=== PATIENT | male | born 1975 | race Hispanic/Latino ===

== ENCOUNTER 2022-06-19 18:50 | Emergency (ER) | payer SELFPAY ==
[2022-06-19] MEDS ORDERED: predniSONE 20 MG TAB ONE (20:52)
== END 2022-06-19 20:55 | disposition home or self-care (01) ==
LOC: CSHERS 18:50
DX: J45.901 Unspecified asthma with (acute) exacerbation (principal); F17.210 Nicotine dependence, cigarettes, uncomplicated
CPT/HCPCS: 71045; 93005; J7512

== ENCOUNTER 2022-07-30 07:47 | Emergency (ER) | payer SELFPAY ==
[2022-07-30] MEDS ORDERED: Dexamethasone 10 MG/ML VIAL ONE (08:08)
== END 2022-07-30 10:20 | disposition home or self-care (01) ==
LOC: CSHERS 07:47
DX: J45.901 Unspecified asthma with (acute) exacerbation (principal); Z87.891 Personal history of nicotine dependence
CPT/HCPCS: 94640; 94760; 96372; J1100; J7620

== ENCOUNTER 2022-09-13 13:21 | Observation (INO) | payer SELFPAY ==
[2022-09-13] MEDS ORDERED: Morphine 4 MG/ML VIAL ONE ×2 (15:21→18:37)
[2022-09-13] MEDS ORDERED: Diazepam 10 MG/2 ML SYRINGE ONE (15:22)
[2022-09-13] MEDS ORDERED: Ketorolac Tromethamine 30 MG/ML VIAL ONE ×2 (16:28→22:58)
[2022-09-13] MEDS ORDERED: predniSONE 20 MG TAB ONE ×2 (16:28)
[2022-09-13] MEDS ORDERED: Ondansetron ODT 4 MG TAB PO PRN (19:39)
[2022-09-13] MEDS ORDERED: Ondansetron PF 4 MG/2 ML Vial IVP PRN (19:39)
[2022-09-13] MEDS ORDERED: Milk Of Magnesia 30 ML UDCUP PO PRN (19:39)
[2022-09-13] MEDS ORDERED: HYDROcodone/Acetaminophen 7.5/325 mg Tablet ONE (20:10)
[2022-09-13] MEDS ORDERED: Acetaminophen 325 MG TAB ONE (20:11)
[2022-09-13] MEDS ORDERED: Diazepam 5 MG TAB ONE (20:11)
[2022-09-13 20:19] LABS: #Eosinphils 0.1 10x3/uL (0.0-0.5); #Monocytes 0.4 10x3/uL (0.0-1.1); #Neutrophils 11.1 10x3/uL (1.5-8.4); %Basophils 0.3 % (0.0-2.0); %Eosinophils 1.1 % (0.0-6.0); %Lymphocytes 10.6 % (18.0-47.0); %Monocytes 3.1 % (0.0-10.0); %Neutrophils 84.4 % (40.0-75.0); Hemoglobin 15.9 g/dL (13.5-17.5); Mean Corpuscular HGB CONC 35.7 g/dL (32.0-36.0); Mean Corpuscular Hemoglobin 30.6 pg (27.0-33.0); Mean Corpuscular Volume 85.9 fl (81.2-95.1); Mean Platelet Volume 10.8 fl (7.4-10.4); Platelet Count 272 10x3/uL (150-450); RBC Distribution Width 13.1 % (11.5-14.5); Red Blood Cell (RBC) Count 5.19 10x6/uL (4.32-5.72); White Blood Cell (WBC) Count 13.2 10x3/uL (3.5-10.5)
[2022-09-13 20:26] LABS: Anion Gap 13 mmol/L (10-20); BUN (Urea Nitrogen) 16 mg/dL (8.9-20.6); Calc. Creatinine Clearance 0 mL/min (70-130); Calcium 9.2 mg/dL (7.8-10.44); Carbon Dioxide 25 mmol/L (22-29); Chloride 102 mmol/L (98-107); Estimated GFR 114; Glucose 88 mg/dL (70-105); Magnesium 2.1 mg/dL (1.6-2.6); Potassium 4.2 mmol/L (3.5-5.1); Sodium 136 mmol/L (136-145)
[2022-09-13] MEDS ORDERED: Ventolin HFA Inhaler 60 PUFF INHALER INH PRN (21:57)
[2022-09-13] MEDS ORDERED: Docusate 100 MG CAP PO SCH (22:00)
[2022-09-13] MEDS: Acetaminophen 325 MG TAB PO SCH (22:00)
[2022-09-13] MEDS: Diazepam 5 MG TAB PO SCH (22:01)
[2022-09-13] MEDS: Ketorolac Tromethamine 30 MG/ML VIAL IVP SCH (23:02)
[2022-09-13] MEDS ORDERED: Ventolin HFA Inhaler 60 PUFF INHALER ONE (23:18)
[2022-09-13] MEDS ORDERED: Melatonin 3 MG TAB PO SCH (23:45)
[2022-09-14] MEDS ORDERED: HYDROcodone/Acetaminophen 7.5/325 mg Tablet ONE ×2 (04:30→08:11)
[2022-09-14] MEDS ORDERED: Diazepam 5 MG TAB ONE (04:31)
[2022-09-14] MEDS ORDERED: Acetaminophen 325 MG TAB ONE ×2 (04:31→08:12)
[2022-09-14] MEDS: Acetaminophen 325 MG TAB PO SCH ×3 (04:34→14:06)
[2022-09-14] MEDS: HYDROcodone/Acetaminophen 7.5/325 mg Tablet PO PRN ×4 (04:35→17:05)
[2022-09-14] MEDS: Diazepam 5 MG TAB PO SCH ×2 (04:35→14:10)
[2022-09-14] MEDS ORDERED: Ketorolac Tromethamine 30 MG/ML VIAL ONE (04:37)
[2022-09-14] MEDS: Ketorolac Tromethamine 30 MG/ML VIAL IVP SCH ×3 (04:45→17:05)
[2022-09-14] MEDS ORDERED: Enoxaparin Sodium 40 MG/0.4 ML SYRINGE ONE (08:12)
[2022-09-14] MEDS ORDERED: Enoxaparin Sodium 40 MG/0.4 ML SYRINGE SC SCH (09:00)
[2022-09-14] MEDS ORDERED: Docusate 100 MG CAP PO SCH (09:00)
[2022-09-14 09:57] VITALS: BMI 30.8
[2022-09-14] MEDS: FLU VACC QS2022-23(6MOS UP)/PF 60 MCG/0.5 ML SYRINGE IM ONE ×2 (11:39→11:40)
[2022-09-14] MEDS: Cyclobenzaprine 10 MG TAB PO PRN ×2 (11:43→17:06)
[2022-09-14 15:13] VITALS: BP 120/78; TEMP 97.7
== END 2022-09-14 19:40 | disposition home or self-care (01) ==
LOC: CSHERS 13:21 → INTOOBSV 21:53 → CSHERHOLD 21:53 → CSHTELE 09-14 09:27
PROVIDERS: ADMIT Family Medicine; ATTEND Physician Assistant
DX: M54.50 Low back pain, unspecified (principal); J45.909 Unspecified asthma, uncomplicated; F17.200 Nicotine dependence, unspecified, uncomplicated; Z20.822 Contact with and (suspected) exposure to COVID-19; Z79.899 Other long term (current) drug therapy
CPT/HCPCS: 36415; 72100; 74177; 80048; 83735; 85025; 96372; 96374; 96376; G0378; J1650; J1885; J2270; J3360; J7512; U0003; U0005

== ENCOUNTER 2022-09-17 20:53 | Inpatient (IN) | payer SELFPAY ==
[2022-09-17] MEDS ORDERED: Magnesium 2 GM/50 ML BAG (IN WATER) ONE (21:15)
[2022-09-17] MEDS ORDERED: methylPREDNISolone Sod Succ/PF 125 MG/2 ML VIAL ONE (21:16)
[2022-09-17] MEDS ORDERED: Albuterol Sulfate 2.5 mg/3 ml Neb ONE (21:20)
[2022-09-17 21:31] LABS: #Basophils 0.1 10x3/uL (0.0-0.2); #Eosinphils 0.2 10x3/uL (0.0-0.5); #Monocytes 0.8 10x3/uL (0.0-1.1); #Neutrophils 12.5 10x3/uL (1.5-8.4); %Basophils 0.5 % (0.0-2.0); %Eosinophils 1.5 % (0.0-6.0); %Lymphocytes 4.8 % (18.0-47.0); %Monocytes 5.4 % (0.0-10.0); %Neutrophils 87.1 % (40.0-75.0); Hemoglobin 15.8 g/dL (13.5-17.5); Mean Corpuscular HGB CONC 34.9 g/dL (32.0-36.0); Mean Corpuscular Hemoglobin 30.4 pg (27.0-33.0); Mean Corpuscular Volume 87.1 fl (81.2-95.1); Platelet Count 241 10x3/uL (150-450); RBC Distribution Width 13.5 % (11.5-14.5); White Blood Cell (WBC) Count 14.4 10x3/uL (3.5-10.5)
[2022-09-17] MEDS ORDERED: Ondansetron PF 4 MG/2 ML Vial IVP PRN (23:05)
[2022-09-17] MEDS ORDERED: Guaifenesin DM 100-10/5 ML UDCUP PO PRN (23:05)
[2022-09-17] MEDS ORDERED: hydrALAZINE 20 MG/ML VIAL SLOW IVP PRN (23:09)
[2022-09-17] MEDS ORDERED: Magnesium 2 GM/50 ML(in water) 2 GM in Premix Bag 1 BAG IVPB SCH (23:15)
[2022-09-17 23:19] LABS: Anion Gap 14 mmol/L (10-20); BUN (Urea Nitrogen) 15 mg/dL (8.9-20.6); Calc. Creatinine Clearance 0 mL/min (70-130); Calcium 9.1 mg/dL (7.8-10.44); Carbon Dioxide 22 mmol/L (22-29); Chloride 105 mmol/L (98-107); Estimated GFR 111; Glucose 99 mg/dL (70-105); Potassium 4.3 mmol/L (3.5-5.1); Sodium 137 mmol/L (136-145)
[2022-09-17 23:36] LABS: Magnesium 2.2 mg/dL (1.6-2.6)
[2022-09-17 23:44] LABS: SARS-CoV-2 NAA Rapid Test Not Detected (NotDetected)
[2022-09-17 23:56] LABS: Lactic Acid 2.2 mmol/L (0.5-2.2)
[2022-09-17] MEDS ORDERED: methylPREDNISolone Sod Succ 40 MG VIAL IVP SCH (23:59)
[2022-09-18] MEDS ORDERED: Guaifenesin DM 100-10/5 ML UDCUP ONE (00:44)
[2022-09-18] MEDS: methylPREDNISolone Sod Succ/PF 125 MG/2 ML VIAL IVP SCH ×2 (00:48→06:04)
[2022-09-18] MEDS: HYDROcodone/Acetaminophen 5/325 mg Tablet PO PRN ×3 (00:49→20:58)
[2022-09-18] MEDS: Zolpidem Tartrate 5 MG TAB PO PRN ×2 (00:50→20:58)
[2022-09-18] MEDS: Guaifenesin DM 100-10/5 ML UDCUP PO PRN ×4 (00:52→20:45)
[2022-09-18] MEDS: Sodium Chloride 0.9% 1,000 ML IV SCH ×3 (00:56→16:14)
[2022-09-18] MEDS: cefTRIAXone\\ROCEPHIN 1 GM in Sodium Chloride 0.9% 100 ML IVPB SCH ×2 (00:57→23:57)
[2022-09-18] MEDS: Nicotine 21 MG PATCH TD SCH ×2 (00:57→23:57)
[2022-09-18 00:58] LABS: SARS-CoV-2 NAA Rapid Test Not Detected (NotDetected)
[2022-09-18] MEDS ORDERED: Oseltamivir 75 MG CAP PO SCH (01:30)
[2022-09-18 01:56] LABS: Actual Bicarbonate (HCO3a) 18.7 mEq/L (22-28); Base Excess (BEa) -6.2 mEq/L (-2.0 to +3.0); CO2 Tension 35.7 mmHg (35.0-45.0); Carboxyhemoglobin (COHb) 0.6 gm% (0.0-3.0); Critical Notified By: CP.JL; Hemoglobin (Hb) 16.1 g/dL (14.0-18.0); O2 Tension (PaO2), arterial 93.3 mmHg (80.0-100.0); Potassium - ABG Lab 4.6 mmol/L (3.70-5.30); Puncture Site RRA; RapidComm Collect By CP.JL; pH, Arterial 7.34 (7.35-7.45)
[2022-09-18 01:59] LABS: ALV-art Gradient 147.275 mmHg (0-20)
[2022-09-18 03:49] LABS: Lactic Acid 3.3 mmol/L (0.5-2.2)
[2022-09-18 03:52] LABS: #Monocytes 0.2 10x3/uL (0.0-1.1); #Neutrophils 17.6 10x3/uL (1.5-8.4); %Basophils 0.2 % (0.0-2.0); %Eosinophils 0.2 % (0.0-6.0); %Lymphocytes 1.4 % (18.0-47.0); %Neutrophils 96.2 % (40.0-75.0); Hemoglobin 15.6 g/dL (13.5-17.5); Mean Corpuscular HGB CONC 34.1 g/dL (32.0-36.0); Mean Corpuscular Hemoglobin 29.9 pg (27.0-33.0); Mean Corpuscular Volume 87.5 fl (81.2-95.1); Mean Platelet Volume 10.3 fl (7.4-10.4); Platelet Count 254 10x3/uL (150-450); RBC Distribution Width 13.6 % (11.5-14.5); Red Blood Cell (RBC) Count 5.22 10x6/uL (4.32-5.72); White Blood Cell (WBC) Count 18.3 10x3/uL (3.5-10.5)
[2022-09-18 03:56] LABS: ALT (SGPT) 21 U/L (8-55); AST (SGOT) 15 U/L (5-34); Albumin 4.3 g/dL (3.5-5.0); Alkaline Phosphatase 55 U/L (40-110); Anion Gap 17 mmol/L (10-20); BUN (Urea Nitrogen) 12 mg/dL (8.9-20.6); Bilirubin, Total 0.6 mg/dL (0.2-1.2); Calc. Creatinine Clearance 161 mL/min (70-130); Calcium 8.9 mg/dL (7.8-10.44); Carbon Dioxide 20 mmol/L (22-29); Chloride 104 mmol/L (98-107); Estimated GFR 111; Globulin 2.8 g/dL (2.4-3.5); Glucose 176 mg/dL (70-105); Magnesium 2.9 mg/dL (1.6-2.6); Potassium 4.8 mmol/L (3.5-5.1); Protein, Total 7.1 g/dL (6.0-8.3); Sodium 136 mmol/L (136-145)
[2022-09-18] MEDS: Famotidine 20 MG TAB PO SCH ×2 (08:27→20:45)
[2022-09-18] MEDS: Oseltamivir 75 MG CAP PO SCH ×2 (08:27→20:45)
[2022-09-18] MEDS: Zinc Sulfate 220 MG CAP PO SCH (08:27)
[2022-09-18] MEDS: Enoxaparin Sodium 40 MG/0.4 ML SYRINGE SC SCH (08:27)
[2022-09-18] MEDS: Gabapentin 300 MG CAP PO SCH ×3 (08:28→20:44)
[2022-09-18] MEDS ORDERED: FLU VACC QS2022-23(6MOS UP)/PF 60 MCG/0.5 ML SYRINGE IM ONE (09:00)
[2022-09-18] MEDS: methylPREDNISolone Sod Succ 40 MG VIAL IVP SCH ×2 (11:49→20:42)
[2022-09-18] MEDS: Azithromycin 500 MG in Sodium Chloride 0.9% 250 ML 250 ML IVPB SCH (11:49)
[2022-09-18] MEDS ORDERED: Lorazepam 2 MG/ML VIAL SLOW IVP SCH (14:15)
[2022-09-18] MEDS: Arformoterol 15 MCG/2 ML NEB NEB SCH (18:55)
[2022-09-18] MEDS: Lorazepam 1 MG TAB PO PRN (23:04)
[2022-09-19] MEDS: Sodium Chloride 0.9% 1,000 ML IV SCH ×4 (03:25→23:47)
[2022-09-19] MEDS: methylPREDNISolone Sod Succ 40 MG VIAL IVP SCH ×3 (04:57→20:57)
[2022-09-19 05:19] LABS: #Eosinphils 0.1 10x3/uL (0.0-0.5); #Monocytes 0.9 10x3/uL (0.0-1.1); #Neutrophils 17.1 10x3/uL (1.5-8.4); %Basophils 0.2 % (0.0-2.0); %Eosinophils 0.4 % (0.0-6.0); %Lymphocytes 2.7 % (18.0-47.0); %Neutrophils 90.9 % (40.0-75.0); Hemoglobin 14.3 g/dL (13.5-17.5); Mean Corpuscular HGB CONC 35.7 g/dL (32.0-36.0); Mean Corpuscular Hemoglobin 30.8 pg (27.0-33.0); Mean Corpuscular Volume 86.4 fl (81.2-95.1); Mean Platelet Volume 10.2 fl (7.4-10.4); Platelet Count 243 10x3/uL (150-450); RBC Distribution Width 13.5 % (11.5-14.5); Red Blood Cell (RBC) Count 4.64 10x6/uL (4.32-5.72); White Blood Cell (WBC) Count 18.8 10x3/uL (3.5-10.5)
[2022-09-19 05:25] LABS: Anion Gap 12 mmol/L (10-20); BUN (Urea Nitrogen) 12 mg/dL (8.9-20.6); Calc. Creatinine Clearance 186 mL/min (70-130); Carbon Dioxide 25 mmol/L (22-29); Chloride 105 mmol/L (98-107); Estimated GFR 116; Glucose 115 mg/dL (70-105); Potassium 4.8 mmol/L (3.5-5.1); Sodium 137 mmol/L (136-145)
[2022-09-19 06:06] VITALS: BMI 30.6
[2022-09-19] MEDS: Oseltamivir 75 MG CAP PO SCH ×2 (08:21→20:57)
[2022-09-19] MEDS: Gabapentin 300 MG CAP PO SCH ×3 (08:21→20:57)
[2022-09-19] MEDS: Zinc Sulfate 220 MG CAP PO SCH (08:22)
[2022-09-19] MEDS: Lorazepam 1 MG TAB PO PRN ×3 (08:22→16:07)
[2022-09-19] MEDS: HYDROcodone/Acetaminophen 5/325 mg Tablet PO PRN ×3 (08:22→20:58)
[2022-09-19] MEDS: Famotidine 20 MG TAB PO SCH ×2 (08:22→20:57)
[2022-09-19] MEDS: Guaifenesin DM 100-10/5 ML UDCUP PO PRN (08:23)
[2022-09-19] MEDS: Enoxaparin Sodium 40 MG/0.4 ML SYRINGE SC SCH (08:23)
[2022-09-19] MEDS: Arformoterol 15 MCG/2 ML NEB NEB SCH ×2 (08:30→18:32)
[2022-09-19] MEDS: Azithromycin 500 MG in Sodium Chloride 0.9% 250 ML 250 ML IVPB SCH (12:43)
[2022-09-19] MEDS ORDERED: Cyclobenzaprine 10 MG TAB PO PRN (13:22)
[2022-09-19] MEDS: Zolpidem Tartrate 5 MG TAB PO PRN (22:03)
[2022-09-19] MEDS: cefTRIAXone\\ROCEPHIN 1 GM in Sodium Chloride 0.9% 100 ML IVPB SCH (23:41)
[2022-09-19] MEDS: Nicotine 21 MG PATCH TD SCH (23:41)
[2022-09-20] MEDS: methylPREDNISolone Sod Succ 40 MG VIAL IVP SCH ×2 (03:27→12:30)
[2022-09-20] MEDS: Guaifenesin DM 100-10/5 ML UDCUP PO PRN (04:15)
[2022-09-20 05:02] LABS: #Monocytes 0.8 10x3/uL (0.0-1.1); #Neutrophils 15.5 10x3/uL (1.5-8.4); %Basophils 0.2 % (0.0-2.0); %Eosinophils 0.2 % (0.0-6.0); %Monocytes 4.7 % (0.0-10.0); %Neutrophils 90.8 % (40.0-75.0); Hemoglobin 13.6 g/dL (13.5-17.5); Mean Corpuscular HGB CONC 33.7 g/dL (32.0-36.0); Mean Corpuscular Hemoglobin 29.6 pg (27.0-33.0); Mean Platelet Volume 10.4 fl (7.4-10.4); Platelet Count 242 10x3/uL (150-450); RBC Distribution Width 13.6 % (11.5-14.5); Red Blood Cell (RBC) Count 4.59 10x6/uL (4.32-5.72); White Blood Cell (WBC) Count 17.1 10x3/uL (3.5-10.5)
[2022-09-20 05:15] LABS: Anion Gap 14 mmol/L (10-20); BUN (Urea Nitrogen) 14 mg/dL (8.9-20.6); Calc. Creatinine Clearance 177 mL/min (70-130); Calcium 9.3 mg/dL (7.8-10.44); Carbon Dioxide 26 mmol/L (22-29); Chloride 103 mmol/L (98-107); Estimated GFR 115; Glucose 137 mg/dL (70-105); Potassium 4.1 mmol/L (3.5-5.1); Sodium 139 mmol/L (136-145)
[2022-09-20] MEDS: Sodium Chloride 0.9% 1,000 ML IV SCH ×2 (07:40→15:59)
[2022-09-20] MEDS: Arformoterol 15 MCG/2 ML NEB NEB SCH (07:47)
[2022-09-20] MEDS ORDERED: Oseltamivir 75 MG CAP PO SCH (09:00)
[2022-09-20] MEDS: Famotidine 20 MG TAB PO SCH ×2 (09:39→21:25)
[2022-09-20] MEDS: Gabapentin 300 MG CAP PO SCH ×3 (09:39→21:24)
[2022-09-20] MEDS: Oseltamivir 75 MG CAP PO SCH ×2 (09:39→21:25)
[2022-09-20] MEDS: Zinc Sulfate 220 MG CAP PO SCH (09:39)
[2022-09-20] MEDS: Enoxaparin Sodium 40 MG/0.4 ML SYRINGE SC SCH (09:40)
[2022-09-20] MEDS: Azithromycin 500 MG in Sodium Chloride 0.9% 250 ML 250 ML IVPB SCH (12:06)
[2022-09-20] MEDS: Mometasone/Formoterol 200/5 60 PUFF INH SCH (18:55)
[2022-09-20] MEDS: HYDROcodone/Acetaminophen 5/325 mg Tablet PO PRN (21:25)
[2022-09-20] MEDS: Zolpidem Tartrate 5 MG TAB PO PRN (21:25)
[2022-09-20] MEDS: Nicotine 21 MG PATCH TD SCH (22:33)
[2022-09-21] MEDS: Sodium Chloride 0.9% 1,000 ML IV SCH ×3 (03:40→16:51)
[2022-09-21 05:31] LABS: #Basophils 0.1 10x3/uL (0.0-0.2); #Monocytes 1.1 10x3/uL (0.0-1.1); #Neutrophils 11.3 10x3/uL (1.5-8.4); %Basophils 0.4 % (0.0-2.0); %Eosinophils 0.1 % (0.0-6.0); %Lymphocytes 10.5 % (18.0-47.0); %Monocytes 7.8 % (0.0-10.0); %Neutrophils 79.2 % (40.0-75.0); Hemoglobin 13.5 g/dL (13.5-17.5); Mean Corpuscular HGB CONC 34.1 g/dL (32.0-36.0); Mean Corpuscular Hemoglobin 29.9 pg (27.0-33.0); Mean Corpuscular Volume 87.6 fl (81.2-95.1); Mean Platelet Volume 10.5 fl (7.4-10.4); Platelet Count 239 10x3/uL (150-450); RBC Distribution Width 13.6 % (11.5-14.5); Red Blood Cell (RBC) Count 4.52 10x6/uL (4.32-5.72); White Blood Cell (WBC) Count 14.3 10x3/uL (3.5-10.5)
[2022-09-21 06:03] LABS: Anion Gap 13 mmol/L (10-20); BUN (Urea Nitrogen) 12 mg/dL (8.9-20.6); Calc. Creatinine Clearance 188 mL/min (70-130); Calcium 8.7 mg/dL (7.8-10.44); Carbon Dioxide 27 mmol/L (22-29); Chloride 105 mmol/L (98-107); Estimated GFR 117; Glucose 98 mg/dL (70-105); Potassium 3.5 mmol/L (3.5-5.1); Sodium 141 mmol/L (136-145)
[2022-09-21] MEDS: Mometasone/Formoterol 200/5 60 PUFF INH SCH ×2 (07:18→19:56)
[2022-09-21] MEDS ORDERED: predniSONE 20 MG TAB PO SCH (08:00)
[2022-09-21] MEDS: Zinc Sulfate 220 MG CAP PO SCH (08:41)
[2022-09-21] MEDS: Famotidine 20 MG TAB PO SCH (08:41)
[2022-09-21] MEDS: Oseltamivir 75 MG CAP PO SCH (08:41)
[2022-09-21] MEDS: Gabapentin 300 MG CAP PO SCH ×2 (08:41→15:10)
[2022-09-21] MEDS: Enoxaparin Sodium 40 MG/0.4 ML SYRINGE SC SCH (08:42)
[2022-09-21] MEDS: Guaifenesin DM 100-10/5 ML UDCUP PO PRN (08:42)
[2022-09-21] MEDS ORDERED: Acetaminophen W/ Codeine 5 ML UDCUP PO PRN (16:23)
[2022-09-21 17:40] VITALS: BP 133/78; TEMP 98.2
[2022-09-22] MEDS ORDERED: Fluticasone Propionate Nasal Spray 16 gm Bottle NASAL SCH (09:00)
== END 2022-09-21 21:53 | disposition home or self-care (01) | DRG 193 ==
LOC: CSHERS 20:53 → CSHICU 23:54 → CSHTELE 09-19 14:05
PROVIDERS: ADMIT Internal Medicine; ATTEND Family Medicine
PROC: 5A09457 Assistance with Respiratory Ventilation, 24-96 Consecutive Hours, Continuous Positive Airway Pressure (ICD-10-PCS; principal; 2022-09-17)
DX: J10.1 Influenza due to other identified influenza virus with other respiratory manifestations (principal); J96.01 Acute respiratory failure with hypoxia; J45.41 Moderate persistent asthma with (acute) exacerbation; E87.20 Acidosis, unspecified; G89.29 Other chronic pain; Z20.822 Contact with and (suspected) exposure to COVID-19; T38.0X5A Adverse effect of glucocorticoids and synthetic analogues, initial encounter; D72.829 Elevated white blood cell count, unspecified; F41.9 Anxiety disorder, unspecified; G47.33 Obstructive sleep apnea (adult) (pediatric); Z79.51 Long term (current) use of inhaled steroids; Z79.899 Other long term (current) drug therapy; Z87.891 Personal history of nicotine dependence
CPT/HCPCS: 36415; 36600; 71045; 80048; 80053; 82805; 83605; 83735; 84443; 85025; 87040; 87070; 87205; 87633; 94640; 94660; 94664; 94760; 96361; 96374; 96375; J0456; J0696; J1650; J2060; J2920; J2930; J3475; J3490; J7050; J7512; J7611; J7620; U0002

== ENCOUNTER 2024-04-06 22:41 | Emergency (ER) | payer SELFPAY ==
[2024-04-06] MEDS ORDERED: Ibuprofen 200 MG TAB ONE (23:06)
[2024-04-06] MEDS ORDERED: HYDROcodone/Acetaminophen 10/325 mg Tablet ONE (23:35)
== END 2024-04-06 23:54 | disposition home or self-care (01) ==
LOC: CSHERS 22:41
DX: S67.197A Crushing injury of left little finger, initial encounter (principal); S62.667A Nondisplaced fracture of distal phalanx of left little finger, initial encounter for closed fracture; J45.909 Unspecified asthma, uncomplicated; W24.0XXA Contact with lifting devices, not elsewhere classified, initial encounter; Y93.89 Activity, other specified; Y92.69 Other specified industrial and construction area as the place of occurrence of the external cause; Y99.9 Unspecified external cause status; Z87.891 Personal history of nicotine dependence; Z55.6 Problems related to health literacy

== ENCOUNTER 2024-08-27 15:56 | Emergency (ER) | payer BC, SELFPAY ==
[2024-08-27] MEDS ORDERED: Ipratropium/Albuterol 3 ML NEB ONE (16:57)
[2024-08-27] MEDS ORDERED: Dexamethasone 10 MG/ML VIAL ONE (16:58)
== END 2024-08-27 17:35 | disposition home or self-care (01) ==
LOC: CSHERS 15:56
DX: J45.901 Unspecified asthma with (acute) exacerbation (principal); R21 Rash and other nonspecific skin eruption; Z87.891 Personal history of nicotine dependence
CPT/HCPCS: 93005; 93010; 96372; 99284; J1100; J7620